=== PATIENT | female | born 1965 | race Caucasian/White ===

== ENCOUNTER 2022-07-10 07:45 | Day surgery (SDC) | payer OTHER, BC ==
[2022-07-09 12:32] VITALS: BMI 19.8
[2022-07-10] MEDS ORDERED: KETAMINE HCL 500 MG/10 ML VIAL ONE (09:17)
[2022-07-10 12:28] VITALS: PULSE 70; RESP 16; TEMP 97.6
[2022-07-10 12:31] VITALS: BP 110/74
== END 2022-07-10 12:35 | disposition home or self-care (01) ==
LOC: FECT 07:45
PROVIDERS: ATTEND Psychiatry & Neurology Psychiatry
PROC: GZB4ZZZ Other Electroconvulsive Therapy (ICD-10-PCS; principal; 2022-07-10 09:34)
DX: F32.A Depression, unspecified (principal)
CPT/HCPCS: 90870; 94760; C9803-CS; U0003; U0005

== ENCOUNTER 2022-07-12 08:18 | Day surgery (SDC) | payer OTHER, BC ==
[2022-07-10 17:57] VITALS: BMI 19.8
[2022-07-12] MEDS ORDERED: KETAMINE HCL 500 MG/10 ML VIAL ONE (09:54)
[2022-07-12 12:32] VITALS: TEMP 98
[2022-07-12 12:59] VITALS: BP 108/64; PULSE 67; RESP 16
== END 2022-07-12 12:00 | disposition home or self-care (01) ==
LOC: FECT 08:18
PROVIDERS: ATTEND Psychiatry & Neurology Psychiatry
PROC: GZB4ZZZ Other Electroconvulsive Therapy (ICD-10-PCS; principal; 2022-07-12 10:00)
DX: F32.A Depression, unspecified (principal)
CPT/HCPCS: 90870; 94760

== ENCOUNTER 2022-07-13 07:02 | Day surgery (SDC) | payer OTHER, BC ==
[2022-07-10 16:26] VITALS: BMI 19.8
[2022-07-13] MEDS ORDERED: KETAMINE HCL 500 MG/10 ML VIAL ONE (09:18)
[2022-07-13 10:25] VITALS: RESP 18
[2022-07-13 10:49] VITALS: BP 100/56; PULSE 76; TEMP 98.3
== END 2022-07-13 11:10 | disposition home or self-care (01) ==
LOC: FECT 07:02
PROVIDERS: ATTEND Psychiatry & Neurology Psychiatry
PROC: GZB4ZZZ Other Electroconvulsive Therapy (ICD-10-PCS; principal; 2022-07-13 09:30)
DX: F32.A Depression, unspecified (principal)
CPT/HCPCS: 90870; 94760; C9803-CS; U0003; U0005

== ENCOUNTER 2022-07-17 06:53 | Day surgery (SDC) | payer OTHER, BC ==
[2022-07-17] MEDS ORDERED: PROMETHAZINE HCL 25 MG/1 ML VIAL IVPUSH PRN (07:17)
[2022-07-17] MEDS ORDERED: ACETAMINOPHEN 325 MG TABLET (FP) PO PRN (07:17)
[2022-07-17] MEDS ORDERED: ONDANSETRON 4 MG/2 ML VIAL IVPUSH PRN (07:17)
[2022-07-17] MEDS ORDERED: LACTATED RINGERS SOLUTION 1,000 ML IV SCH (07:30)
[2022-07-17 07:51] VITALS: BMI 19.8
[2022-07-17] MEDS ORDERED: KETAMINE HCL 500 MG/10 ML VIAL ONE (09:06)
[2022-07-17 10:38] VITALS: BP 109/68; PULSE 66; RESP 20; TEMP 97.3
== END 2022-07-17 11:00 | disposition home or self-care (01) ==
LOC: FECT 06:53
PROVIDERS: ATTEND Psychiatry & Neurology Psychiatry
PROC: GZB4ZZZ Other Electroconvulsive Therapy (ICD-10-PCS; principal; 2022-07-17 09:22)
DX: F32.A Depression, unspecified (principal)
CPT/HCPCS: 90870; 94760; C9803-CS; U0003; U0005

== ENCOUNTER 2022-07-19 08:05 | Day surgery (SDC) | payer OTHER, BC ==
[2022-07-12 15:15] VITALS: BMI 19.8
[2022-07-19] MEDS ORDERED: KETAMINE HCL 500 MG/10 ML VIAL ONE (09:47)
[2022-07-19 11:02] VITALS: RESP 18; TEMP 97.4
[2022-07-19] MEDS ORDERED: ACETAMINOPHEN 325 MG TABLET (FP) PO PRN (11:31)
[2022-07-19] MEDS ORDERED: PROMETHAZINE HCL 25 MG/1 ML VIAL IVPUSH PRN (11:31)
[2022-07-19 11:44] VITALS: BP 102/60; PULSE 70
[2022-07-19] MEDS ORDERED: LACTATED RINGERS SOLUTION 1,000 ML IV SCH (11:45)
== END 2022-07-19 11:46 | disposition home or self-care (01) ==
LOC: FECT 08:05
PROVIDERS: ATTEND Psychiatry & Neurology Psychiatry
PROC: GZB4ZZZ Other Electroconvulsive Therapy (ICD-10-PCS; principal; 2022-07-19 10:02)
DX: F32.A Depression, unspecified (principal)
CPT/HCPCS: 90870; 94760

== ENCOUNTER 2022-07-20 08:58 | Day surgery (SDC) | payer OTHER, BC ==
[2022-07-12 15:20] VITALS: BMI 19.8
[2022-07-20] MEDS ORDERED: KETAMINE HCL 500 MG/10 ML VIAL ONE (10:08)
[2022-07-20 11:25] VITALS: RESP 18; TEMP 98.2
[2022-07-20 11:48] VITALS: BP 96/56; PULSE 70
== END 2022-07-20 12:06 | disposition home or self-care (01) ==
LOC: FECT 08:58
PROVIDERS: ATTEND Psychiatry & Neurology Psychiatry
PROC: GZB4ZZZ Other Electroconvulsive Therapy (ICD-10-PCS; principal; 2022-07-20 10:23)
DX: F33.2 Major depressive disorder, recurrent severe without psychotic features (principal)
CPT/HCPCS: 90870; 94760; C9803-CS; U0003; U0005

== ENCOUNTER 2022-07-24 08:27 | Day surgery (SDC) | payer OTHER, BC ==
[2022-07-20 07:45] VITALS: BMI 19.8
[2022-07-24] MEDS ORDERED: KETAMINE HCL 500 MG/10 ML VIAL ONE (11:09)
[2022-07-24 11:36] VITALS: TEMP 98.5
[2022-07-24 12:36] VITALS: RESP 18
[2022-07-24 12:38] VITALS: BP 131/75; PULSE 77
== END 2022-07-24 12:50 | disposition home or self-care (01) ==
LOC: FECT 08:27
PROVIDERS: ATTEND Psychiatry & Neurology Psychiatry
PROC: GZB4ZZZ Other Electroconvulsive Therapy (ICD-10-PCS; principal; 2022-07-24 11:20)
DX: F32.A Depression, unspecified (principal)
CPT/HCPCS: 90870; 94760; C9803-CS; U0003; U0005

== ENCOUNTER 2022-07-26 08:40 | Day surgery (SDC) | payer OTHER, BC ==
[2022-07-20 07:48] VITALS: BMI 19.8
[2022-07-26] MEDS ORDERED: KETAMINE HCL 500 MG/10 ML VIAL ONE (09:45)
[2022-07-26 10:43] VITALS: RESP 18
[2022-07-26 11:19] VITALS: TEMP 98.2
[2022-07-26 11:24] VITALS: BP 133/77; PULSE 69
== END 2022-07-26 11:15 | disposition home or self-care (01) ==
LOC: FECT 08:40
PROVIDERS: ATTEND Psychiatry & Neurology Psychiatry
PROC: GZB4ZZZ Other Electroconvulsive Therapy (ICD-10-PCS; principal; 2022-07-26 09:56)
DX: F32.A Depression, unspecified (principal)
CPT/HCPCS: 90870; 94760

== ENCOUNTER 2022-07-27 06:51 | Day surgery (SDC) | payer OTHER, BC ==
[2022-07-20 07:51] VITALS: BMI 19.8
[2022-07-27] MEDS ORDERED: KETAMINE HCL 500 MG/10 ML VIAL ONE (07:34)
[2022-07-27 08:15] VITALS: TEMP 98.3
[2022-07-27 09:03] VITALS: RESP 18
[2022-07-27 10:17] VITALS: BP 130/77; PULSE 66
== END 2022-07-27 09:30 | disposition home or self-care (01) ==
LOC: FECT 06:51
PROVIDERS: ATTEND Psychiatry & Neurology Psychiatry
PROC: GZB4ZZZ Other Electroconvulsive Therapy (ICD-10-PCS; principal; 2022-07-27 07:46)
DX: F32.A Depression, unspecified (principal)
CPT/HCPCS: 90870; 94760; C9803-CS; U0003; U0005

== ENCOUNTER 2022-07-31 08:30 | Day surgery (SDC) | payer OTHER, BC ==
[2022-07-26 14:49] VITALS: BMI 19.8
[2022-07-31] MEDS ORDERED: KETAMINE HCL 500 MG/10 ML VIAL ONE (09:27)
[2022-07-31 10:50] VITALS: RESP 18; TEMP 98
[2022-07-31 12:12] VITALS: BP 118/77; PULSE 76
== END 2022-07-31 11:30 | disposition home or self-care (01) ==
LOC: FECT 08:30
PROVIDERS: ATTEND Psychiatry & Neurology Psychiatry
PROC: GZB4ZZZ Other Electroconvulsive Therapy (ICD-10-PCS; principal; 2022-07-31 09:39)
DX: F32.A Depression, unspecified (principal)
CPT/HCPCS: 90870; 94760; C9803-CS; U0003; U0005

== ENCOUNTER 2022-08-02 07:41 | Day surgery (SDC) | payer OTHER, BC ==
[2022-07-31 16:09] VITALS: BMI 19.8
[2022-08-02 08:10] VITALS: TEMP 97.8
[2022-08-02] MEDS ORDERED: KETAMINE HCL 500 MG/10 ML VIAL ONE (08:28)
[2022-08-02 10:05] VITALS: RESP 18
[2022-08-02 10:48] VITALS: BP 112/64; PULSE 61
[2022-08-02] MEDS ORDERED: ONDANSETRON 4 MG/2 ML VIAL IVPUSH PRN (11:51)
== END 2022-08-02 10:50 | disposition home or self-care (01) ==
LOC: FECT 07:41
PROVIDERS: ATTEND Psychiatry & Neurology Psychiatry
PROC: GZB4ZZZ Other Electroconvulsive Therapy (ICD-10-PCS; principal; 2022-08-02 08:50)
DX: F32.A Depression, unspecified (principal)
CPT/HCPCS: 90870; 94760

== ENCOUNTER 2022-08-03 07:53 | Day surgery (SDC) | payer OTHER, BC ==
[2022-08-01 18:02] VITALS: BMI 19.8
[2022-08-03] MEDS ORDERED: KETAMINE HCL 500 MG/10 ML VIAL ONE (08:33)
[2022-08-03 10:16] VITALS: RESP 16; TEMP 97.9
[2022-08-03 11:09] VITALS: BP 117/73; PULSE 74
== END 2022-08-03 11:00 | disposition home or self-care (01) ==
LOC: FECT 07:53
PROVIDERS: ATTEND Psychiatry & Neurology Psychiatry
PROC: GZB4ZZZ Other Electroconvulsive Therapy (ICD-10-PCS; principal; 2022-08-03 09:24)
DX: F32.A Depression, unspecified (principal)
CPT/HCPCS: 90870; 94760; C9803-CS; U0003; U0005

== ENCOUNTER 2022-08-07 08:01 | Day surgery (SDC) | payer OTHER, BC ==
[2022-08-02 13:45] VITALS: BMI 19.8
[~2022-08-07 08:01] MED LIST: LACTATED RINGERS SOLUTION 1,000 ML IV SCH; ONDANSETRON 4 MG/2 ML VIAL IVPUSH PRN
[2022-08-07] MEDS ORDERED: KETAMINE HCL 500 MG/10 ML VIAL ONE (09:26)
[2022-08-07 10:52] VITALS: TEMP 98
[2022-08-07 10:53] VITALS: PULSE 69
[2022-08-07 11:05] VITALS: BP 112/69; RESP 18
== END 2022-08-07 11:30 | disposition home or self-care (01) ==
LOC: FECT 08:01
PROVIDERS: ATTEND Psychiatry & Neurology Psychiatry
PROC: GZB4ZZZ Other Electroconvulsive Therapy (ICD-10-PCS; principal; 2022-08-07 09:41)
DX: F32.A Depression, unspecified (principal)
CPT/HCPCS: 90870; 94760; C9803-CS; U0003; U0005

== ENCOUNTER 2022-08-09 07:57 | Day surgery (SDC) | payer OTHER, BC ==
[2022-08-09 08:21] VITALS: BMI 20.2
[2022-08-09] MEDS ORDERED: PROPOFOL 40 ML ONE (09:53)
[2022-08-09] MEDS ORDERED: SUCCINYLCHOLINE CHLORIDE 200 MG/10 ML SYRINGE ONE (09:53)
[2022-08-09] MEDS ORDERED: KETAMINE HCL 200 MG/20 ML VIAL ONE (09:54)
[2022-08-09 10:29] VITALS: TEMP 97.1
[2022-08-09 11:39] VITALS: BP 115/65; PULSE 69; RESP 18
== END 2022-08-09 12:00 | disposition home or self-care (01) ==
LOC: FECT 07:57
PROVIDERS: ATTEND Psychiatry & Neurology Psychiatry
PROC: GZB4ZZZ Other Electroconvulsive Therapy (ICD-10-PCS; principal; 2022-08-09 10:02)
DX: F32.A Depression, unspecified (principal)
CPT/HCPCS: 90870; 94760

== ENCOUNTER 2022-08-10 07:20 | Day surgery (SDC) | payer OTHER, BC ==
[2022-08-10 08:24] VITALS: BMI 20.2
[2022-08-10] MEDS ORDERED: KETAMINE HCL 500 MG/10 ML VIAL ONE (09:05)
[2022-08-10 10:12] VITALS: RESP 18; TEMP 97.6
[2022-08-10 11:01] VITALS: BP 128/74; PULSE 64
== END 2022-08-10 11:03 | disposition home or self-care (01) ==
LOC: FECT 07:20
PROVIDERS: ATTEND Psychiatry & Neurology Psychiatry
PROC: GZB4ZZZ Other Electroconvulsive Therapy (ICD-10-PCS; principal; 2022-08-10 09:16)
DX: F32.A Depression, unspecified (principal)
CPT/HCPCS: 90870; 94760; C9803-CS; U0003; U0005

== ENCOUNTER 2022-08-14 08:31 | Day surgery (SDC) | payer OTHER, BC ==
[2022-08-08 15:26] VITALS: BMI 19.8
[~2022-08-14 08:31] MED LIST changes: -ONDANSETRON 4 MG/2 ML VIAL IVPUSH PRN
[2022-08-14] MEDS ORDERED: KETAMINE HCL 500 MG/10 ML VIAL ONE (11:22)
[2022-08-14 15:14] VITALS: PULSE 76; RESP 20; TEMP 98.7
[2022-08-14 15:17] VITALS: BP 112/62
== END 2022-08-14 13:20 | disposition home or self-care (01) ==
LOC: FECT 08:31
PROVIDERS: ATTEND Psychiatry & Neurology Psychiatry
PROC: GZB4ZZZ Other Electroconvulsive Therapy (ICD-10-PCS; principal; 2022-08-14 11:34)
DX: F33.2 Major depressive disorder, recurrent severe without psychotic features (principal)
CPT/HCPCS: 90870; 94760; C9803-CS; U0003; U0005

== ENCOUNTER 2022-08-16 06:48 | Day surgery (SDC) | payer OTHER, BC ==
[2022-08-10 07:58] VITALS: BMI 20.2
[2022-08-16] MEDS ORDERED: KETAMINE HCL 500 MG/10 ML VIAL ONE (08:24)
[2022-08-16 09:30] VITALS: RESP 18
[2022-08-16 10:02] VITALS: BP 125/77; PULSE 69; TEMP 97.8
== END 2022-08-16 10:00 | disposition home or self-care (01) ==
LOC: FECT 06:48
PROVIDERS: ATTEND Psychiatry & Neurology Psychiatry
PROC: GZB4ZZZ Other Electroconvulsive Therapy (ICD-10-PCS; principal; 2022-08-16 08:37)
DX: F32.A Depression, unspecified (principal)
CPT/HCPCS: 90870; 94760

== ENCOUNTER 2022-08-17 08:13 | Day surgery (SDC) | payer OTHER, BC ==
[2022-08-10 08:07] VITALS: BMI 20.2
[2022-08-17] MEDS ORDERED: KETAMINE HCL 500 MG/10 ML VIAL ONE (09:48)
[2022-08-17 11:04] VITALS: RESP 18; TEMP 98.6
[2022-08-17 11:29] VITALS: BP 120/76; PULSE 70
== END 2022-08-17 11:31 | disposition home or self-care (01) ==
LOC: FECT 08:13
PROVIDERS: ATTEND Psychiatry & Neurology Psychiatry
PROC: GZB4ZZZ Other Electroconvulsive Therapy (ICD-10-PCS; principal; 2022-08-17 10:01)
DX: F32.A Depression, unspecified (principal)
CPT/HCPCS: 90870; 94760; C9803-CS; U0003; U0005

== ENCOUNTER 2022-08-21 07:55 | Day surgery (SDC) | payer OTHER, BC ==
[2022-08-15 12:09] VITALS: BMI 19.6
[2022-08-21] MEDS ORDERED: KETAMINE HCL 500 MG/10 ML VIAL ONE (09:06)
[2022-08-21 10:16] VITALS: PULSE 68; RESP 18; TEMP 98
[2022-08-21 10:28] VITALS: BP 110/56
== END 2022-08-21 11:02 | disposition home or self-care (01) ==
LOC: FECT 07:55
PROVIDERS: ATTEND Psychiatry & Neurology Psychiatry
PROC: GZB4ZZZ Other Electroconvulsive Therapy (ICD-10-PCS; principal; 2022-08-21 08:30)
DX: F33.2 Major depressive disorder, recurrent severe without psychotic features (principal)
CPT/HCPCS: 90870; 94760; C9803-CS; U0003; U0005

== ENCOUNTER 2022-08-23 06:52 | Day surgery (SDC) | payer OTHER, BC ==
[2022-08-21 11:19] VITALS: BMI 19.6
[2022-08-23] MEDS ORDERED: LACTATED RINGERS SOLUTION 1,000 ML IV SCH (07:45)
[2022-08-23] MEDS ORDERED: KETAMINE HCL 500 MG/10 ML VIAL ONE (08:47)
[2022-08-23 12:10] VITALS: TEMP 97.7
[2022-08-23 12:30] VITALS: BP 132/74; PULSE 65; RESP 16
[2022-08-23] MEDS ORDERED: ONDANSETRON *ODT* 4 MG TABLET ONE (12:56)
== END 2022-08-23 12:15 | disposition home or self-care (01) ==
LOC: FECT 06:52
PROVIDERS: ATTEND Psychiatry & Neurology Psychiatry
PROC: GZB4ZZZ Other Electroconvulsive Therapy (ICD-10-PCS; principal; 2022-08-23 08:57)
DX: F33.2 Major depressive disorder, recurrent severe without psychotic features (principal)
CPT/HCPCS: 90870; 94760; Q0162

== ENCOUNTER 2022-08-24 08:21 | Day surgery (SDC) | payer OTHER, BC ==
[2022-08-22 16:52] VITALS: BMI 19.6
[2022-08-24] MEDS ORDERED: KETAMINE HCL 500 MG/10 ML VIAL ONE (09:35)
[2022-08-24 11:03] VITALS: BP 110/76; PULSE 63; RESP 18; TEMP 97.9
== END 2022-08-24 11:15 | disposition home or self-care (01) ==
LOC: FECT 08:21
PROVIDERS: ATTEND Psychiatry & Neurology Psychiatry
PROC: GZB4ZZZ Other Electroconvulsive Therapy (ICD-10-PCS; principal; 2022-08-24 09:48)
DX: F33.2 Major depressive disorder, recurrent severe without psychotic features (principal)
CPT/HCPCS: 90870; 94760; C9803-CS; U0003; U0005

== ENCOUNTER 2022-08-30 08:03 | Day surgery (SDC) | payer OTHER, BC ==
[2022-08-27 13:13] VITALS: BMI 19.6
[2022-08-30] MEDS ORDERED: PROPOFOL 20 ML ONE (09:10)
[2022-08-30] MEDS ORDERED: SUCCINYLCHOLINE CHLORIDE 200 MG/10 ML SYRINGE ONE (09:10)
[2022-08-30] MEDS ORDERED: KETAMINE HCL 200 MG/20 ML VIAL ONE (09:11)
[2022-08-30 10:23] VITALS: RESP 16; TEMP 97.6
[2022-08-30 10:38] VITALS: BP 112/67; PULSE 69
== END 2022-08-30 11:06 | disposition home or self-care (01) ==
LOC: FECT 08:03
PROVIDERS: ATTEND Psychiatry & Neurology Psychiatry
PROC: GZB4ZZZ Other Electroconvulsive Therapy (ICD-10-PCS; principal; 2022-08-30 09:17)
DX: F32.A Depression, unspecified (principal)
CPT/HCPCS: 90870; 94760; C9803-CS; U0003; U0005

== ENCOUNTER 2022-08-31 08:01 | Day surgery (SDC) | payer OTHER, BC ==
[2022-08-22 16:56] VITALS: BMI 19.6
[2022-08-31] MEDS ORDERED: KETOROLAC TROMETHAMINE 30 MG/1 ML VIAL ONE (09:10)
[2022-08-31] MEDS ORDERED: DEXAMETHASONE SOD PHOSPHATE 4 MG/1 ML VIAL ONE (09:10)
[2022-08-31] MEDS ORDERED: ONDANSETRON 4 MG/2 ML VIAL ONE (09:10)
[2022-08-31] MEDS ORDERED: KETAMINE HCL 500 MG/10 ML VIAL ONE (09:11)
[2022-08-31 10:00] VITALS: RESP 18
[2022-08-31 10:22] VITALS: PULSE 64; TEMP 97.9
[2022-08-31 10:59] VITALS: BP 123/74
[2022-08-31] MEDS ORDERED: LACTATED RINGERS SOLUTION 1,000 ML IV SCH (14:15)
== END 2022-08-31 11:11 | disposition home or self-care (01) ==
LOC: FECT 08:01
PROVIDERS: ATTEND Psychiatry & Neurology Psychiatry
PROC: GZB4ZZZ Other Electroconvulsive Therapy (ICD-10-PCS; principal; 2022-08-31 09:27)
DX: F32.A Depression, unspecified (principal)
CPT/HCPCS: 90870; 94760; C9803-CS; U0003; U0005

== ENCOUNTER 2022-09-04 09:11 | Day surgery (SDC) | payer OTHER, BC ==
[2022-08-27 07:07] VITALS: BMI 19.6
[2022-09-04] MEDS ORDERED: PROMETHAZINE HCL 25 MG/1 ML VIAL IVPB PRN (10:19)
[2022-09-04] MEDS ORDERED: ACETAMINOPHEN 500 MG TABLET (FP) PO PRN (10:19)
[2022-09-04] MEDS ORDERED: LACTATED RINGERS SOLUTION 1,000 ML IV SCH (10:30)
[2022-09-04] MEDS ORDERED: KETAMINE HCL 500 MG/10 ML VIAL ONE (10:35)
[2022-09-04] MEDS ORDERED: SUGAMMADEX SODIUM 200 MG/2 ML VIAL ONE (11:28)
[2022-09-04] MEDS ORDERED: SUCCINYLCHOLINE CHLORIDE 200 MG/10 ML SYRINGE ONE (11:28)
[2022-09-04 11:40] VITALS: RESP 16
[2022-09-04] MEDS ORDERED: METOPROLOL TARTRATE 5 MG/5 ML VIAL ONE (11:46)
[2022-09-04 11:48] VITALS: PULSE 68; TEMP 97.9
[2022-09-04 12:12] VITALS: BP 119/67
== END 2022-09-04 12:40 | disposition home or self-care (01) ==
LOC: FECT 09:11
PROVIDERS: ATTEND Psychiatry & Neurology Psychiatry
PROC: GZB4ZZZ Other Electroconvulsive Therapy (ICD-10-PCS; principal; 2022-09-04 10:48)
DX: F33.2 Major depressive disorder, recurrent severe without psychotic features (principal)
CPT/HCPCS: 90870; 94760; C9803-CS; U0003; U0005

== ENCOUNTER → 2022-09-07 | Day surgery (SDC) | payer OTHER, BC ==
[2022-09-03 14:26] VITALS: BMI 19.6
[~2022-09-07] MED LIST changes: +DEXAMETHASONE SOD PHOSPHATE 4 MG/1 ML VIAL ONE; +KETAMINE HCL 500 MG/10 ML VIAL ONE; +KETOROLAC TROMETHAMINE 30 MG/1 ML VIAL ONE; +ONDANSETRON 4 MG/2 ML VIAL ONE; +PROPOFOL 20 ML ONE; +SUCCINYLCHOLINE CHLORIDE 200 MG/10 ML SYRINGE ONE
[2022-09-07 10:00] VITALS: RESP 16
[2022-09-07 10:13] VITALS: PULSE 84; TEMP 99
[2022-09-07 10:47] VITALS: BP 124/78
== END | disposition home or self-care (01) ==
LOC: FECT 07:59
PROVIDERS: ATTEND Psychiatry & Neurology Psychiatry
PROC: GZB4ZZZ Other Electroconvulsive Therapy (ICD-10-PCS; principal; 2022-09-07 09:22)
DX: F32.A Depression, unspecified (principal)
CPT/HCPCS: 90870; 94760

== ENCOUNTER 2022-09-11 08:50 | Day surgery (SDC) | payer OTHER, BC ==
[2022-09-11 09:14] VITALS: BMI 21.0
[2022-09-11 11:17] VITALS: PULSE 73
[2022-09-11 12:35] VITALS: BP 126/70; RESP 18
[2022-09-11 12:36] VITALS: TEMP 97.4
== END 2022-09-11 12:15 | disposition home or self-care (01) ==
LOC: FECT 08:50
PROVIDERS: ATTEND Psychiatry & Neurology Psychiatry
PROC: GZB4ZZZ Other Electroconvulsive Therapy (ICD-10-PCS; principal; 2022-09-11 10:31)
DX: F32.A Depression, unspecified (principal)
CPT/HCPCS: 90870; 94760

== ENCOUNTER 2022-09-14 07:33 | Day surgery (SDC) | payer OTHER, BC ==
[2022-09-04 15:37] VITALS: BMI 19.6
[2022-09-14] MEDS ORDERED: LACTATED RINGERS SOLUTION 1,000 ML IV SCH (08:15)
[2022-09-14 09:25] VITALS: TEMP 98.2
[2022-09-14 09:29] VITALS: RESP 18
[2022-09-14 10:03] VITALS: BP 130/70; PULSE 84
== END 2022-09-14 11:21 | disposition home or self-care (01) ==
LOC: FECT 07:33
PROVIDERS: ATTEND Psychiatry & Neurology Psychiatry
PROC: GZB4ZZZ Other Electroconvulsive Therapy (ICD-10-PCS; principal; 2022-09-14 09:00)
DX: F33.2 Major depressive disorder, recurrent severe without psychotic features (principal)
CPT/HCPCS: 90870; 94760

== ENCOUNTER 2022-09-18 09:54 | Day surgery (SDC) | payer OTHER, BC ==
[2022-09-12 12:31] VITALS: BMI 19.6
[2022-09-18 14:58] VITALS: TEMP 97.9
[2022-09-18 15:05] VITALS: BP 122/73; PULSE 66; RESP 17
== END 2022-09-18 12:50 | disposition home or self-care (01) ==
LOC: FECT 09:54
PROVIDERS: ATTEND Psychiatry & Neurology Psychiatry
PROC: GZB4ZZZ Other Electroconvulsive Therapy (ICD-10-PCS; principal; 2022-09-18 11:23)
DX: F32.A Depression, unspecified (principal)
CPT/HCPCS: 90870; 94760

== ENCOUNTER 2022-09-24 09:52 | Day surgery (SDC) | payer OTHER, BC ==
[2022-09-12 13:39] VITALS: BMI 19.6
[2022-09-24] MEDS ORDERED: KETAMINE HCL 500 MG/10 ML VIAL ONE (10:59)
[2022-09-24 15:36] VITALS: PULSE 67; TEMP 97.8
[2022-09-24 16:01] VITALS: BP 132/72; RESP 16
== END 2022-09-24 12:50 | disposition home or self-care (01) ==
LOC: FECT 09:52
PROVIDERS: ATTEND Psychiatry & Neurology Psychiatry
PROC: GZB4ZZZ Other Electroconvulsive Therapy (ICD-10-PCS; principal; 2022-09-24 11:09)
DX: F33.2 Major depressive disorder, recurrent severe without psychotic features (principal)
CPT/HCPCS: 90870; 94760

== ENCOUNTER 2022-09-25 08:42 | Day surgery (SDC) | payer OTHER, BC ==
[2022-09-18 17:53] VITALS: BMI 19.6
[2022-09-25] MEDS ORDERED: KETAMINE HCL 500 MG/10 ML VIAL ONE (09:51)
[2022-09-25 10:51] VITALS: RESP 16; TEMP 97.7
[2022-09-25 10:58] VITALS: BP 126/72; PULSE 82
== END 2022-09-25 10:59 | disposition home or self-care (01) ==
LOC: FECT 08:42
PROVIDERS: ATTEND Psychiatry & Neurology Psychiatry
PROC: GZB4ZZZ Other Electroconvulsive Therapy (ICD-10-PCS; principal; 2022-09-25 09:59)
DX: F32.A Depression, unspecified (principal)
CPT/HCPCS: 90870; 94760

== ENCOUNTER 2022-09-28 08:20 | Day surgery (SDC) | payer OTHER, BC ==
[2022-09-25 14:39] VITALS: BMI 19.6
[~2022-09-28 08:20] MED LIST changes: -DEXAMETHASONE SOD PHOSPHATE 4 MG/1 ML VIAL ONE; -KETAMINE HCL 500 MG/10 ML VIAL ONE; -KETOROLAC TROMETHAMINE 30 MG/1 ML VIAL ONE; -ONDANSETRON 4 MG/2 ML VIAL ONE; -PROPOFOL 20 ML ONE; -SUCCINYLCHOLINE CHLORIDE 200 MG/10 ML SYRINGE ONE
[2022-09-28 10:25] VITALS: RESP 18
[2022-09-28 10:26] VITALS: PULSE 70
[2022-09-28 10:57] VITALS: TEMP 97.8
[2022-09-28 11:03] VITALS: BP 130/80
== END 2022-09-28 11:49 | disposition home or self-care (01) ==
LOC: FECT 08:20
PROVIDERS: ATTEND Psychiatry & Neurology Psychiatry
PROC: GZB4ZZZ Other Electroconvulsive Therapy (ICD-10-PCS; principal; 2022-09-28 09:37)
DX: F25.9 Schizoaffective disorder, unspecified (principal)
CPT/HCPCS: 90870; 94760

== ENCOUNTER 2022-10-02 08:57 | Day surgery (SDC) | payer OTHER, BC ==
[2022-10-02 09:18] VITALS: BMI 19.6
[2022-10-02 11:38] VITALS: TEMP 97.8
[2022-10-02 11:52] VITALS: BP 120/78; PULSE 70; RESP 19
== END 2022-10-02 12:20 | disposition home or self-care (01) ==
LOC: FECT 08:57
PROVIDERS: ATTEND Psychiatry & Neurology Psychiatry
PROC: GZB4ZZZ Other Electroconvulsive Therapy (ICD-10-PCS; principal; 2022-10-02 10:37)
DX: F32.A Depression, unspecified (principal)
CPT/HCPCS: 90870; 94760

== ENCOUNTER 2022-10-05 07:29 | Day surgery (SDC) | payer OTHER, BC ==
[2022-10-02 14:20] VITALS: BMI 19.6
[2022-10-05 09:41] VITALS: RESP 16; TEMP 97.8
[2022-10-05 10:02] VITALS: BP 133/79; PULSE 78
== END 2022-10-05 10:20 | disposition home or self-care (01) ==
LOC: FECT 07:29
PROVIDERS: ATTEND Psychiatry & Neurology Psychiatry
PROC: GZB4ZZZ Other Electroconvulsive Therapy (ICD-10-PCS; principal; 2022-10-05 08:54)
DX: F33.2 Major depressive disorder, recurrent severe without psychotic features (principal)
CPT/HCPCS: 90870; 94760

== ENCOUNTER 2022-10-09 08:32 | Day surgery (SDC) | payer OTHER, BC ==
[2022-10-03 16:11] VITALS: BMI 19.6
[2022-10-09] MEDS ORDERED: KETAMINE HCL 500 MG/10 ML VIAL ONE (09:49)
[2022-10-09 11:11] VITALS: RESP 18; TEMP 97.8
[2022-10-09 11:51] VITALS: BP 122/71; PULSE 71
[2022-10-09] MEDS ORDERED: PROMETHAZINE HCL 25 MG/1 ML VIAL IVPB PRN (12:19)
[2022-10-09] MEDS ORDERED: ACETAMINOPHEN 500 MG TABLET (FP) PO PRN (12:19)
[2022-10-09] MEDS ORDERED: LACTATED RINGERS SOLUTION 1,000 ML IV SCH (12:30)
== END 2022-10-09 11:53 | disposition home or self-care (01) ==
LOC: FECT 08:32
PROVIDERS: ATTEND Psychiatry & Neurology Psychiatry
PROC: GZB4ZZZ Other Electroconvulsive Therapy (ICD-10-PCS; principal; 2022-10-09 10:03)
DX: F33.2 Major depressive disorder, recurrent severe without psychotic features (principal)
CPT/HCPCS: 90870; 94760

== ENCOUNTER 2022-10-23 08:31 | Day surgery (SDC) | payer OTHER, BC ==
[2022-10-05 08:34] VITALS: BMI 19.6
[2022-10-23] MEDS ORDERED: KETAMINE HCL 500 MG/10 ML VIAL ONE (10:01)
[2022-10-23] MEDS ORDERED: SUCCINYLCHOLINE CHLORIDE 200 MG/10 ML SYRINGE ONE (10:14)
[2022-10-23 11:36] VITALS: PULSE 64; RESP 16; TEMP 97.7
[2022-10-23 11:45] VITALS: BP 143/75
== END 2022-10-23 11:55 | disposition home or self-care (01) ==
LOC: FECT 08:31
PROVIDERS: ATTEND Psychiatry & Neurology Psychiatry
PROC: GZB4ZZZ Other Electroconvulsive Therapy (ICD-10-PCS; principal; 2022-10-23 10:16)
DX: F33.2 Major depressive disorder, recurrent severe without psychotic features (principal)
CPT/HCPCS: 90870; 94760

== ENCOUNTER 2022-10-26 09:01 | Day surgery (SDC) | payer OTHER, BC ==
[2022-10-23 16:35] VITALS: BMI 19.6
[2022-10-26 09:25] VITALS: RESP 18; TEMP 98
[2022-10-26] MEDS ORDERED: KETAMINE HCL 500 MG/10 ML VIAL ONE (09:45)
[2022-10-26 11:32] VITALS: BP 125/75; PULSE 76
== END 2022-10-26 12:30 | disposition home or self-care (01) ==
LOC: FECT 09:01
PROVIDERS: ATTEND Psychiatry & Neurology Psychiatry
PROC: GZB4ZZZ Other Electroconvulsive Therapy (ICD-10-PCS; principal; 2022-10-26 10:07)
DX: F32.A Depression, unspecified (principal)
CPT/HCPCS: 90870; 94760

== ENCOUNTER 2022-10-30 08:59 | Day surgery (SDC) | payer OTHER, BC ==
[2022-10-30 09:24] VITALS: BMI 19.6
[2022-10-30] MEDS ORDERED: KETAMINE HCL 500 MG/10 ML VIAL ONE (10:09)
[2022-10-30 11:14] VITALS: RESP 18; TEMP 97.4
[2022-10-30 11:37] VITALS: BP 120/75; PULSE 73
== END 2022-10-30 12:04 | disposition home or self-care (01) ==
LOC: FECT 08:59
PROVIDERS: ATTEND Psychiatry & Neurology Psychiatry
PROC: GZB4ZZZ Other Electroconvulsive Therapy (ICD-10-PCS; principal; 2022-10-30 10:22)
DX: F33.2 Major depressive disorder, recurrent severe without psychotic features (principal)
CPT/HCPCS: 90870; 94760

== ENCOUNTER 2022-11-02 08:01 | Day surgery (SDC) | payer OTHER, BC ==
[2022-10-31 16:39] VITALS: BMI 19.6
[2022-11-02] MEDS ORDERED: KETAMINE HCL 500 MG/10 ML VIAL ONE (09:38)
[2022-11-02] MEDS ORDERED: ONDANSETRON 4 MG/2 ML VIAL ONE (09:42)
[2022-11-02] MEDS ORDERED: SUCCINYLCHOLINE CHLORIDE 200 MG/10 ML SYRINGE ONE (09:42)
[2022-11-02] MEDS ORDERED: PROPOFOL 20 ML ONE (09:42)
[2022-11-02] MEDS ORDERED: DEXAMETHASONE SOD PHOSPHATE 4 MG/1 ML VIAL ONE (09:42)
[2022-11-02] MEDS ORDERED: NALOXONE HCL 0.4 MG/ML VIAL ONE (09:42)
[2022-11-02] MEDS ORDERED: ONDANSETRON 4 MG/2 ML VIAL IVPUSH PRN (10:36)
[2022-11-02 10:42] VITALS: RESP 18; TEMP 97.4
[2022-11-02] MEDS ORDERED: LACTATED RINGERS SOLUTION 1,000 ML IV SCH (10:45)
[2022-11-02 10:58] VITALS: BP 128/76; PULSE 72
== END 2022-11-02 11:25 | disposition home or self-care (01) ==
LOC: FECT 08:01
PROVIDERS: ATTEND Psychiatry & Neurology Psychiatry
PROC: GZB4ZZZ Other Electroconvulsive Therapy (ICD-10-PCS; principal; 2022-11-02 09:49)
DX: F33.2 Major depressive disorder, recurrent severe without psychotic features (principal)
CPT/HCPCS: 90870; 94760

== ENCOUNTER 2022-11-06 07:38 | Day surgery (SDC) | payer OTHER, BC ==
[2022-11-01 08:06] VITALS: BMI 19.6
[2022-11-06] MEDS ORDERED: KETAMINE HCL 500 MG/10 ML VIAL ONE (08:35)
[2022-11-06 09:31] VITALS: RESP 18
[2022-11-06 10:32] VITALS: TEMP 98
[2022-11-06 10:35] VITALS: PULSE 69
[2022-11-06 10:39] VITALS: BP 140/80
== END 2022-11-06 10:25 | disposition home or self-care (01) ==
LOC: FECT 07:38
PROVIDERS: ATTEND Psychiatry & Neurology Psychiatry
PROC: GZB4ZZZ Other Electroconvulsive Therapy (ICD-10-PCS; principal; 2022-11-06 08:51)
DX: F33.2 Major depressive disorder, recurrent severe without psychotic features (principal)
CPT/HCPCS: 90870; 94760

== ENCOUNTER → 2022-11-08 | Day surgery (SDC) | payer OTHER, BC ==
[2022-11-06 11:00] VITALS: BMI 19.6
[~2022-11-08] MED LIST changes: +KETAMINE HCL 500 MG/10 ML VIAL ONE; -LACTATED RINGERS SOLUTION 1,000 ML IV SCH
[2022-11-08 08:01] VITALS: TEMP 97.3
[2022-11-08 08:34] VITALS: RESP 18
[2022-11-08 09:09] VITALS: BP 133/83; PULSE 64
== END | disposition home or self-care (01) ==
LOC: FECT 06:14
PROVIDERS: ATTEND Psychiatry & Neurology Psychiatry
PROC: GZB4ZZZ Other Electroconvulsive Therapy (ICD-10-PCS; principal; 2022-11-08 07:32)
DX: F33.2 Major depressive disorder, recurrent severe without psychotic features (principal)
CPT/HCPCS: 90870; 94760

== ENCOUNTER 2022-11-13 07:31 | Day surgery (SDC) | payer OTHER, BC ==
[2022-11-07 17:01] VITALS: BMI 19.6
[2022-11-13 09:33] VITALS: TEMP 98.2
[2022-11-13 10:49] VITALS: RESP 18
[2022-11-13 11:19] VITALS: BP 113/80; PULSE 65
== END 2022-11-13 11:20 | disposition home or self-care (01) ==
LOC: FECT 07:31
PROVIDERS: ATTEND Psychiatry & Neurology Psychiatry
PROC: GZB4ZZZ Other Electroconvulsive Therapy (ICD-10-PCS; principal; 2022-11-13 09:18)
DX: F32.A Depression, unspecified (principal)
CPT/HCPCS: 90870; 94760

== ENCOUNTER 2022-11-15 08:26 | Day surgery (SDC) | payer OTHER, BC ==
[2022-11-08 07:15] VITALS: BMI 19.6
[2022-11-15] MEDS ORDERED: KETAMINE HCL 500 MG/10 ML VIAL ONE (10:13)
[2022-11-15 10:53] VITALS: TEMP 98.4
[2022-11-15 11:18] VITALS: RESP 18
[2022-11-15 12:01] VITALS: BP 138/78; PULSE 77
== END 2022-11-15 12:00 | disposition home or self-care (01) ==
LOC: FECT 08:26
PROVIDERS: ATTEND Psychiatry & Neurology Psychiatry
PROC: GZB4ZZZ Other Electroconvulsive Therapy (ICD-10-PCS; principal; 2022-11-15 10:24)
DX: F32.A Depression, unspecified (principal)
CPT/HCPCS: 90870; 94760

== ENCOUNTER 2022-11-20 08:46 | Day surgery (SDC) | payer OTHER, BC ==
[2022-11-15 14:38] VITALS: BMI 19.6
[2022-11-20 12:55] VITALS: RESP 18
[2022-11-20 13:07] VITALS: BP 145/75; PULSE 69; TEMP 98
== END 2022-11-20 13:05 | disposition home or self-care (01) ==
LOC: FECT 08:46
PROVIDERS: ATTEND Psychiatry & Neurology Psychiatry
PROC: GZB4ZZZ Other Electroconvulsive Therapy (ICD-10-PCS; principal; 2022-11-20 11:35)
DX: F32.A Depression, unspecified (principal)
CPT/HCPCS: 90870; 94760

== ENCOUNTER 2022-11-23 08:21 | Day surgery (SDC) | payer OTHER, BC ==
[2022-11-16 08:07] VITALS: BMI 19.6
[2022-11-23 11:50] VITALS: TEMP 97.8
[2022-11-23 12:32] VITALS: BP 138/74; PULSE 65; RESP 18
== END 2022-11-23 12:05 | disposition home or self-care (01) ==
LOC: FECT 08:21
PROVIDERS: ATTEND Psychiatry & Neurology Psychiatry
PROC: GZB4ZZZ Other Electroconvulsive Therapy (ICD-10-PCS; principal; 2022-11-23 10:35)
DX: F32.A Depression, unspecified (principal)
CPT/HCPCS: 90870; 94760